=== PATIENT | female | born 1980 | race Caucasian/White ===

== ENCOUNTER 2020-10-04 16:21 | Emergency (ER) | payer OTHER, SELFPAY ==
--- NOTE | ~2020-10-04 | CT_ITS ---
EXAMINATION: CT abdomen pelvis w con DATE: 10/04/2020 18:19 INDICATION: Periumbilical abdominal pain since this morning, nausea and vomiting, chills. Elevated wh ite blood cell count. TECHNIQUE: Computed tomography (CT) of the abdomen and pelvis was performed with 100 cc Omnipaque 350 intravenous contrast. Automated exposure control and iterative reconstruction technique were employe d. Exam dose: 1389.87 mGy-cm total exam DLP. COMPARISON: None. FINDINGS: Mild dependent lower lobe atelectasis, right greater than left. No pericardial or pleural e ffusion. Heart size appears within normal limits. There is a large wedge-shaped linear geographic area of diminished enhancement of the spleen suggesti ng splenic infarct. Status post cholecystectomy. No bile duct or pancreatic duct dilatation. Diffuse hepatic steatosis. No hepatic space-occupying mass lesion. No pancreatic mass lesion or calci fication. Normal morphology of the adrenal glands. 7 mm right renal cyst. The kidneys are otherwise unremarkable. No urinary tract calculus or hydrouret eronephrosis. The urinary bladder is unremarkable. Uterus and adnexal areas are likewise are unremark able. Normal caliber of the abdominal aorta. No intraperitoneal or retroperitoneal or pelvic mass lesion or adenopathy or ascites is detected. Normal appendix. No bowel obstruction, bowel wall thickening, pneumatosis or intraperitoneal free air . Included skeletal structures are unremarkable. 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 Reviewed, dictated and finalized at [facility].
--- NOTE | 2020-10-04 16:59 | ECG_ITS ---
Measurements Intervals [place] Rate: 73 P: 27 DC: 210 QRS: 70 QRSD: 94 T: 34 QT: 380 QTc: 421 Interpretive Statements SINUS RHYTHM WITH FIRST DEGREE AV BLOCK ABNORMAL ECG Electronically Signed On 10-04-2020 18:20:48 CDT by Job Akers D.O.
[2020-10-04] MEDS: SODIUM CHLORIDE 0.9% IV 1,000 ML 999 ML IV CONT (17:22)
[2020-10-04] MEDS: ONDANSETRON INJ 4 MG/2 ML VIAL IV PUSH (17:23)
[2020-10-04 17:24] VITALS: BP 161/104; PULSE 72; RESP 20; TEMP 36.2; O2SAT 96
[2020-10-04] MEDS: MORPHINE SULFATE (*CRX) 4 MG/ML INJ IV PUSH (17:24)
[2020-10-04 17:46] LABS: Basophils Absolute Auto 0.06 K/mm3 (0.00-0.10); Basophils Percent Auto 0.4 % (0.0-1.0); Eosinophils Absolute Auto 0.04 K/mm3 (0.02-0.50); Eosinophils Percent Auto 0.2 % (1.0-6.0); Hematocrit 45.9 % (35.0-49.0); Hemoglobin 14.9 g/dL (12.0-15.0); Immature Granulocyte Absolute 0.08 K/mm3 (0.00-0.00); Immature Granulocyte Percent A 0.5 % (0.0-0.0); Lymphocytes Absolute Auto 1.88 K/mm3 (1.10-4.50); Lymphocytes Percent Auto 11.6 % (18.0-42.0); Mean Corpuscular HGB Conc 32.5 g/dL (32.0-36.0); Mean Corpuscular Hemoglobin 28.9 pg (27.0-31.0); Mean Corpuscular Volume 89.1 fL (78.0-102.0); Mean Platelet Volume 10.4 fl (9.2-11.8); Monocytes Absolute Auto 0.64 K/mm3 (0.10-0.90); Neutrophils Absolute Auto 13.5 K/mm3 (1.7-7.2); Neutrophils Percent Auto 83.3 % (50.0-70.0); Platelet Count Result 321 K/mm3 (150-420); Red Blood Count 5.15 M/mm3 (4.20-5.40); Red Cell Distribution Width 13.9 % (11.6-14.4); White Blood Count 16.2 K/mm3 (4.8-10.8)
[2020-10-04 18:03] LABS: Partial Thromboplastin Time 28.3 SEC (23.90-30.70); Prothrombin Time 10.9 Seconds (9.50-12.10)
[2020-10-04 18:07] LABS: Alanine Aminotransferase 23 U/L (14-59); Albumin Level 3.3 g/dL (3.4-5.0); Alkaline Phosphatase 69 U/L (46-116); Anion Gap 9 mmol/L (8-16); Aspartate Amino Transferase 29 U/L (15-37); Bilirubin,Total 0.8 mg/dL (0.00-1.00); Blood Urea Nitrogen 10 mg/dL (7-18); Calcium 8.5 mg/dL (8.5-10.1); Carbon Dioxide 24 mmol/L (21-32); Chloride 103 mmol/L (98-108); Estimated CRCL calculation 66 ml/min; Estimated Glomerular Filt Rate 56; Glucose 115 mg/dL (70-99); Lactic Acid Reflex 1.1 mmol/L (0.4-2.0); Lipase 74 U/L (73-393); Osmolality Calculated 282 mOsm/kg (285-295); Potassium 4.1 mmol/L (3.5-5.1); Sodium 136 mmol/L (136-145); Total Protein 8.2 g/dL (6.4-8.2); Troponin I < 4.0 ng/L (0.00-60.4)
[2020-10-04 18:28] LABS: Appearance Urine Clear (Clear); Bilirubin Urine Negative (Negative); Color Urine Yellow (Yellow); Glucose Urine UA Negative (Negative); Ketones Urine Negative (Negative); Leukocyte Esterase Ur Negative LEU/UL (Negative); Nitrate Urine Negative (Negative); Protein Urine 1+ (Negative); Specific Grav Ur 1.025 (1.010-1.020); Urobilinogen Urine 0.2 mg/dL (0.2-1.0)
[2020-10-04 18:32] LABS: Add Urine Microscopic? YES; Blood Urine Trace (Negative); RBC Urine 0-2 /hpf (0-2)
[2020-10-04 18:33] LABS: Bacteria Urine Trace /hpf; Squamous Epithelial Cell Urine Few /hpf (Few); WBC Urine 0-3 /hpf (0-3)
--- NOTE | 2020-10-04 18:58 | ED.ABDPAIN ---
HPI - Abdominal Pain General Chief Complaint: Abdominal Pain Stated Complaint: throwing up and abd pain Source: patient and family Mode of arrival: ambulatory Limitations: no limitations History of Present Illness HPI narrative: This is a 40-year-old female with a history of heart disease with stents currently having abdominal pain Um and epigastric tenderness and some burning with some some nausea and episodes of vomiting with no diarrhea no fever chills no chest pain no shortness of breath. The patient has a history of coronary artery disease with 2 stents placed history of hypertension. Currently no flank pain no dysuria no hematuria no fever chills. MD elicited complaint: abdominal pain Pertinent past history: myocardial infarction Onset (ago): day(s) Pain Consistency: intermittent Location: diffuse Severity: moderate Pain scale (0-10): 6 Quality: aching Exacerbating factors: vomiting Relieving factors: nothing Associated symptoms: nausea and vomiting Related Data Home Medications Medication Instructions Recorded Confirmed aspirin 81 mg PO DAILY 10/04/20 10/04/20 metoprolol succinate 25 mg PO DAILY 10/04/20 10/04/20 Allergies Allergy/AdvReac Type Severity Reaction Status Date / Time Penicillins Allergy Hives Verified 10/04/20 17:34 Review of Systems Review of Systems: All systems reviewed & are unremarkable except as noted in HPI and below PMFSH Past Medical History Medical History CAD (coronary artery disease) HTN (hypertension) Social History Social History Gender identity (if verbalized by the patient): Female Exam Const: General: no acute distress Orientation/consciousness: patient oriented x3 HENMT: Head: normal to inspection Eyes: Conjunctivae: conjunctivae normal Pupils: Equal, round and reactive pupils present Neck: Neck: normal visual inspection, no lymphadenopathy and no meningeal signs Chest: Chest palpation & inspection: normal inspection of the chest Resp: Effort & Inspection: normal respiratory effort Auscultation: clear to auscultation bilaterally Cardio: Rate: regular rate Rhythm: regular rhythm GI: GI Palp: Yes Soft to palpation and Yes Tenderness to palpation present (GI) : General: Yes no CVA tenderness Skin: General skin exam: normal color Rashes: no rashes Neuro: General: patient oriented x3, moves all extremities and no meningeal signs Extrem: General: normal to inspection and no pedal edema Psych: Mental Status: mental status grossly normal Course Course Emergency Course: patient received morphine for pain which had a cause of improvement in her pain level and also IV fluids and Zofran and currently patient is feeling better. Vital Signs Vital signs: Vital Signs Temperature 36.2 C L 10/04/20 17:24 Pulse Rate 72 10/04/20 17:24 Respiratory Rate 20 10/04/20 17:24 Blood Pressure 161/104 H 10/04/20 17:24 Pulse Oximetry 96 10/04/20 17:24 Temperature 36.2 C L 10/04/20 17:24 Pulse Rate 72 10/04/20 17:24 Respiratory Rate 20 10/04/20 17:24 Blood Pressure 161/104 H 10/04/20 17:24 Pulse Oximetry 96 10/04/20 17:24 MDM - Abdominal Pain Lab Data Result diagrams: 10/04/20 16:59 10/04/20 16:59 Labs: Lab Results 10/04/20 10/04/20 10/04/20 Range/Units 16:59 16:59 16:59 WBC 16.2 H (4.8-10.8) K/mm3 RBC 5.15 (4.20-5.40) M/mm3 Hgb 14.9 (12.0-15.0) g/dL Hct 45.9 (35.0-49.0) % MCV 89.1 (78.0-102.0) fL MCH 28.9 (27.0-31.0) pg MCHC 32.5 (32.0-36.0) g/dL RDW 13.9 (11.6-14.4) % Plt Count 321 (150-420) K/mm3 MPV 10.4 (9.2-11.8) fl Immature Gran % (Auto) 0.5 H (0.0-0.0) % Neut % (Auto) 83.3 H (50.0-70.0) % Lymph % (Auto) 11.6 L (18.0-42.0) % [place] % (Auto) 4.0 (2.0-11.0) % Eos % (Auto) 0.2 L (1.0-6.0) % Baso % (
[2020-10-04 19:22] VITALS: BP 148/104; PULSE 63; RESP 20; TEMP 36.7; O2SAT 99
== END 2020-10-04 19:27 | disposition home or self-care (01) ==
PROVIDERS: Emergency Provider Emergency Medicine
DX: R10.9 Unspecified abdominal pain (principal); K76.0 Fatty (change of) liver, not elsewhere classified; D73.5 Infarction of spleen; I10 Essential (primary) hypertension; I25.10 Atherosclerotic heart disease of native coronary artery without angina pectoris; Z95.5 Presence of coronary angioplasty implant and graft
CPT/HCPCS: 36415; 74177; 80053; 81001; 83605; 83690; 84484; 85025; 85610; 85730; 93005; 96361; 96374; 96375; 99283; 99284; J2270; J2405; J7030; Q9967

== ENCOUNTER 2021-11-10 07:33 | Emergency (ER) | payer OTHER, SELFPAY ==
--- NOTE | ~2021-11-10 | XR_ITS ---
. EXAMINATION: XR heel RT min 2V DATE: 11/10/2021 08:20 INDICATION: Left heel pain and swelling TECHNIQUE: Lateral and axial radiographs of the left heel were obtained. COMPARISON: None. FINDINGS: Bone alignment is normal. Moderate-sized Achilles and plantar calcaneal spurs. No fracture. Joint [facility] are normal. Subcutaneous edema at the heel plantar fat pad. IMPRESSION: 1. Moderate-sized Achilles and plantar calcaneal spurs. No acute osseous abnormality. Reviewed, dictated and finalized at [facility]. IMPRESSION: 1. Moderate-sized Achilles and plantar calcaneal spurs. No acute osseous abnorm ality.
[2021-11-10 07:40] VITALS: BP 121/72; PULSE 86; RESP 16; TEMP 36.9; O2SAT 99
[2021-11-10] MEDS: IBUPROFEN 400 MG TABLET 800 MG PO (08:18)
--- NOTE | 2021-11-10 08:24 | PC.NURSE ---
THERE IS A GOLF BALL SIZE HARDENED AREA TO BOTTOM OF PT LEFT FOOT, JUST BELOW THE INSIDE OF HER INSTEP. MILD REDNESS IS ALSO NOTED, NO STREAKING OR HEAT NOTED. AREA WAS CLEANED WITH SURE CLENZ AND PEROXIDE. NO WOUNDS NOTED. CHANCE WRAP APPLIED, +PMS POST APPLICATION.
--- NOTE | 2021-11-10 09:05 | ED.LOWEXIN ---
HPI - Extremity Injury (Lower) General Chief Complaint: Extremity Injury, Lower Stated Complaint: left foot swollen Time Seen by Provider: 11/10/21 07:35 Source: patient and RN notes reviewed Mode of arrival: ambulatory Limitations: no limitations History of Present Illness complaint: foot injury (left heel redness and swelling x 2 days. pt denied stepping on any sharp object.) Onset (ago): day(s) (1 day) Type of Injury: unknown Place: work Severity: mild Severity scale (1-10): 3 Relieving factors: nothing Exacerbating factors: weight bearing Associated symptoms: able to partially bear weight Other symptoms: none Related Data Home Medications Medication Instructions Recorded Confirmed aspirin 81 mg PO DAILY 10/04/20 11/10/21 metoprolol succinate 25 mg PO DAILY 10/04/20 11/10/21 Allergies Allergy/AdvReac Type Severity Reaction Status Date / Time Penicillins Allergy Hives Verified 11/10/21 07:46 Review of Systems Review of Systems: All systems reviewed & are unremarkable except as noted in HPI and below PMFSH Past Medical History Medical History Abdominal pain CAD (coronary artery disease) Cellulitis of left heel HTN (hypertension) Social History Social History Gender identity (if verbalized by the patient): Female Exam Const: General: no acute distress and alert Nutritional Appearance: well nourished Orientation/consciousness: patient oriented x3 Limitations: no limitations HENMT: Head: normal to inspection Ears: external ears normal and TM's normal bilaterally General nose exam: Normal external nose present and Normal nares present Face and sinus: normal facial exam and sinuses nontender Mouth: Yes moist mucous membranes Eyes: Conjunctivae: conjunctivae normal Pupils: Equal, round and reactive pupils present EOM: EOMs intact bilaterally Neck: Neck: normal visual inspection and no lymphadenopathy Chest: Chest palpation & inspection: normal inspection of the chest Resp: Effort & Inspection: normal respiratory effort Auscultation: clear to auscultation bilaterally Cardio: Rate: regular rate Rhythm: regular rhythm GI: GI Palp: Yes Soft to palpation and No Tenderness to palpation present (GI) Auscultation: normal bowel sounds : General: Yes bladder normal to palpation, Yes Bladder palpation abnormal and Yes no CVA tenderness Back/Spine/Pelvis: Back: no CVA tenderness Skin: General skin exam: normal color Rashes: no rashes Neuro: General: patient oriented x3, moves all extremities, no meningeal signs, no focal motor deficits and CN's II-XI intact bilaterally Extrem: General: normal to inspection Other: medial left heel: minimal redness and swelling. Psych: Appearance: grossly normal and well kempt Mental Status: mental status grossly normal Affect: normal affect Attitude: cooperative Thought content: Yes Normal thought content present Course Course Emergency Course: Pt was stable in the ED. less pain-ful Reevaluation(s) Date: 11/10/21 Time: 08:25 Vital Signs Vital signs: Vital Signs Temperature 36.9 C 11/10/21 07:40 Pulse Rate 86 11/10/21 07:40 Respiratory Rate 16 11/10/21 07:40 Blood Pressure 121/72 11/10/21 07:40 Pulse Oximetry 99 11/10/21 07:40 Temperature 36.9 C 11/10/21 07:40 Pulse Rate 86 11/10/21 07:40 Respiratory Rate 16 11/10/21 07:40 Blood Pressure 121/72 11/10/21 07:40 Pulse Oximetry 99 11/10/21 07:40 MDM - Extremity Injury (Lower) Differential Diagnosis Differential diagnosis: Likely puncture wound of foot and other (heel cellulitis) Medical Records Attestation: I reviewed the patient's medical records. Lab Data Attestation: I reviewed the patient's lab results. Imaging Data Radiologist's impression: See the report. Critical Care Time Critical Care Time Critical Care Time: No Total Critical Car
[2021-11-10 09:12] LABS: Basophils Absolute Auto 0.06 K/mm3 (0.00-0.10); Basophils Percent Auto 0.6 % (0.0-1.0); Eosinophils Absolute Auto 0.19 K/mm3 (0.02-0.50); Eosinophils Percent Auto 1.9 % (1.0-6.0); Hematocrit 44.7 % (35.0-49.0); Hemoglobin 14.6 g/dL (12.0-15.0); Immature Granulocyte Absolute 0.03 K/mm3 (0.00-0.00); Immature Granulocyte Percent A 0.3 % (0.0-0.0); Lymphocytes Absolute Auto 3.02 K/mm3 (1.10-4.50); Lymphocytes Percent Auto 30.6 % (18.0-42.0); Mean Corpuscular HGB Conc 32.7 g/dL (32.0-36.0); Mean Corpuscular Hemoglobin 29.3 pg (27.0-31.0); Mean Corpuscular Volume 89.8 fL (78.0-102.0); Mean Platelet Volume 10.7 fl (9.2-11.8); Monocytes Absolute Auto 0.64 K/mm3 (0.10-0.90); Monocytes Percent Auto 6.5 % (2.0-11.0); Neutrophils Absolute Auto 5.9 K/mm3 (1.7-7.2); Neutrophils Percent Auto 60.1 % (50.0-70.0); Platelet Count Result 321 K/mm3 (150-420); Red Blood Count 4.98 M/mm3 (4.20-5.40); Red Cell Distribution Width 14.1 % (11.6-14.4); White Blood Count 9.9 K/mm3 (4.8-10.8)
[2021-11-10 09:30] VITALS: PULSE 78; RESP 16; O2SAT 98
[2021-11-10 09:32] LABS: Alanine Aminotransferase 14 U/L (14-59); Albumin Level 3.2 g/dL (3.4-5.0); Alkaline Phosphatase 60 U/L (46-116); Anion Gap 8 mmol/L (8-16); Aspartate Amino Transferase 19 U/L (15-37); Bilirubin,Total 0.9 mg/dL (0.00-1.00); Blood Urea Nitrogen 9 mg/dL (7-18); Calcium 8.5 mg/dL (8.5-10.1); Carbon Dioxide 24 mmol/L (21-32); Chloride 105 mmol/L (98-108); Estimated CRCL calculation 74 ml/min; Estimated Glomerular Filt Rate > 60; Glucose 105 mg/dL (70-99); Osmolality Calculated 282 mOsm/kg (285-295); Potassium 3.8 mmol/L (3.5-5.1); Sodium 137 mmol/L (136-145)
== END 2021-11-10 09:30 | disposition home or self-care (01) ==
PROVIDERS: Emergency Provider Emergency Medicine; PCP Physician Assistant
DX: L03.116 Cellulitis of left lower limb (principal)
CPT/HCPCS: 36415; 73650; 80053; 85025; 99283; A9270